=== PATIENT | male | born 1995 | race Caucasian/White ===

== ENCOUNTER 2023-12-21 08:41 | Emergency (ER) | payer MEDICAID ==
[~2023-12-21] VITALS: Ht 177.8 cm; Wt 82.4 kg
[2023-12-21 08:48] VITALS: BP 127/68; PULSE 60; RESP 16; TEMP 98.5; O2SAT 96
[2023-12-21] MEDS ORDERED: CEPH500C2 PO (11:37)
== END 2023-12-21 11:43 | disposition home or self-care (01) ==
LOC: ER 08:43
DX: H00.014 Hordeolum externum left upper eyelid (principal); Z79.2 Long term (current) use of antibiotics
CPT/HCPCS: 99283